=== PATIENT | female | born 1975 | race Caucasian/White ===

== ENCOUNTER 2017-08-13 07:40 | Outpatient (CLI) | payer OTHER | END 2017-08-13 07:56 | disposition home or self-care (01) | LOC: LAB 07:40 | DX: E11.65 Type 2 diabetes mellitus with hyperglycemia (principal); E10.65 Type 1 diabetes mellitus with hyperglycemia; E03.8 Other specified hypothyroidism; E05.90 Thyrotoxicosis, unspecified without thyrotoxic crisis or storm; E78.2 Mixed hyperlipidemia; E55.9 Vitamin D deficiency, unspecified; D64.89 Other specified anemias; N39.0 Urinary tract infection, site not specified; E21.3 Hyperparathyroidism, unspecified; E24.9 Cushing's syndrome, unspecified; E28.310 Symptomatic premature menopause; E22.1 Hyperprolactinemia ==

== ENCOUNTER 2017-08-13 08:39 | Outpatient (CLI) | payer OTHER | END 2017-08-13 08:57 | disposition home or self-care (01) | LOC: SONOGRAMA 08:39 | DX: E04.1 Nontoxic single thyroid nodule (principal) ==